=== PATIENT | female | born 1995 | race Caucasian/White ===

== ENCOUNTER 2025-07-09 21:28 | Outpatient (CLI) | payer MEDICAID, SELFPAY ==
[2025-07-09 21:37] VITALS: BMI 35.0
--- OUTSIDE RECORDS SUMMARY | 2025-07-09 21:37 | XMS RPT_ITS | CCD ---
Author Organization [facility] Inform ion [facility] Care Team Providers Care District Sales Coordinator Name Role Phone Rings, Chaz Unavailable Unavailable Rings, Chaz Unavailable Unavailable Yunior Pan Unavailable Unavailable ALESHIA CAMPBELL Admitting Unavailable ALESHIA CAMPBELL Attending Unavailable ALESHIA CAMPBELL Primary Care Unavailable SRI ELISE Consulting Unavailable PROVIDER, UNKNOWN Consulting Unavailable PROVIDER, UNKNOWN Consulting Unavailable PROVIDER, UNKNOWN Consulting Unavailable Unavailable Primary Care Provider UnavailJACLYN Morrow Referring Unavailable JACLYN SCOTT Referring Unavailable JACLYN SCOTT Attending Unavailable HAJACLYN SANTOS Referring Unavailable DIANE SMITH Attending Unavailable HAJACLYN SANTOS Referring Unavailable Allergies Allergy Classification Reported Allergen(s) Allergy Type Date of Onset Reaction(s) Facility (5 sources) Penicillins; Translations: [penicillins] Propensity to adverse reactions to drug (disorder) [address] [facility] Repository (1 source) No Known Allergies; Translations: [No Known Allergies] Propensity to adverse reactions to drug (disorder) [facility] Repository (4 sources) diphenhydrAMINE ; Translations: [DIPHENHYDRAMIN E] Drug Allergy 3 Shortness of Breath [facility] (4 sources) Hydrogen Peroxide; Translations: [HYDROGEN PEROXIDE] Drug Allergy 3 Other: See Comments [facility] Medications Current Medications Medication Drug Class(es) Dates Sig (Normalized) Sig (Original) vit 75/iron/folic/om3 (DAILY ORAL) (3 sources) vit 75/iron/folic/om3 (DAILY ORAL) Take by mouth. Active Problems Problem Classification Problem Date Documented Da te Episodic/Chronic Allergic reactions (5 sources) Allergy to penicillin; Translations: [Allergy status to penicillin] Onset: 05-21-2025 05-21-2025 Episodic Immunizations and screening for infectious disease (2 sources) Patient encounter status; Translations: [Encounter for screening for infections with a predominantly sexual mode of transmission] Onset: 05-21-2025 05-21-2025 Episodic Other circulatory disease (4 sources) H/O: hypertension; Translations: [Personal history of other diseases of the circulatory system] Onset: 05-21-2025 05-21-2025 Episodic Other circulatory disease (1 source) Personal history of other diseases of the circulatory system; Translations: [History of hypertension] Onset: 05-21-2025 Episodic Other complications of (6 sources) High risk ; Translations: [Supervision of high risk , unspecified, second trimester] Onset: 05-21-2025 05-21-2025 Episodic Other complications of (4 sources) Late entry into care; Translations: [Supervision of with insufficient care, unspecified trimester] Onset: 05-21-2025 05-21-2025 Episodic Other complications of (4 sources) Finding of pattern of ; Translations: [Supervision of other high risk pregnancies, unspecified trimester] Onset: 05-21-2025 05-21-2025 Episodic Other complications of (4 sources) History of delivery of macrosomal ; Translations: [Supervision of with other poor reproductive or obstetric history, unspecified trimester] Onset: 05-21-2025 05-21-2025 Episodic Other complications of (1 source) Supervision of high risk , unspecified, second trimester; Translations: [Supervision of high risk in second trimester (HCC)] Onset: 05-21-2025 Episodic Other complications of (1 source) Supervision of with insufficient care, unspecified trimester; Translations: [Late care ([facility])] Onset: 05-21-2025 Episodic Other complications of (1 source) Supervision of other high risk pregnancies, unspecified trimester; Translations: [Short interval between pregnancies affecting , antepartum ([facility])] Onset: 05-21-2025 Episodic Other complications of (1 source) Supervision of with other poor reproductive or obstetric history, unspecified trimester; Translations: [History of macrosomia in in prior , currently ([facility])] Onset: 05-21-2025 Episodic Other gastrointestinal disorders (1 source) Diarrhea, unspecified; Translations: [Diarrhea, unspecified] Onset: 04-22-2020 Episodic Other screening for suspected conditions (not mental disorders or infectious disease) (3 sources) Cancer cervix screening status; Translations: [Encounter for screening for malignant neoplasm of cervix] Onset: 05-21-2025 05-21-2025 Episodic Residual codes; unclassified (1 source) Gestation period, 17 weeks; Translations: [17 weeks gestation of ] 05-21-2025 Episodic Residual codes; unclassified (4 sources) Family history of cleft lip; Translations: [Family history of other congenital malformations, deformations and chromosomal abnormalities] Onset: 05-21-2025 05-21-2025 Episodic Residual codes; unclassified (4 sources) H/O: blood transfusion; Translations: [Personal history of other medical treatment] Onset: 05-21-2025 05-21-2025 Episodic Residual codes; unclassified (1 source) H/O: ; Translations: [Personal history of other complications of , childbirth and the puerperium] 05-21-2025 Episodic Residual codes; unclassified (1 source) 20 weeks gestation of ; Translations: [20 weeks gestation of (HCC)] Onset: 06-11-2025 Episodic Residual codes; unclassified (1 source) History of uterine scar from previous surgery; Translations: [History of section] Onset: 05-21-2025 Episodic Residual codes; unclassified (2 sources) Personal history of other complications of , childbirth and the puerperium; Translations: [History of hypertension] Onset: 05-21-2025 Episodic Residual codes; unclassified (1 source) 17 weeks gestation of ; Translations: [17 weeks gestation of (HCC)] Onset: 05-21-2025 Episodic Residual codes; unclassified (1 source) Family history of other congenital malformations, deformations and chromosomal abnormalities; Translations: [Family history of cleft lip] Onset: 05-21-2025 Episodic Residual codes; unclassified (1 source) Personal history of other medical treatment; Translations: [History of blood transfusion] Onset: 05-21-2025 Episodic Unclassified (3 sources) [facility] Education - COMMON Onset: 05-21-2025 05-21-2025 Unclassified (3 sources) Education - [place] Onset: 05-21-2025 05-21-2025 Results Test Name Value Interpretation Reference Range Cassie Elkins 05-22-2025 CNPN Telephone ([facility]) RACHELIRIS Molina ([id number]) 1995 F Date Time Provider Department 05/22/25 NURSE PST SPECIALIST [facility] During your visit today, we recorded the following information about you: Nathalie Chavez, RN 05/22/2025 8:15 AM Signed 1st risk assessment form submitted 05/22/25 Nathalie Chavez RN Allergies As of Date: 05/22/2025 Noted Allergy Reaction DIPHENHYDRAMINE 08/24/2023 12 - Shortness of Breath HYDROGEN PEROXIDE 08/24/2023 14 - Other: See Comments PENICILLINS 08/24/2023 7 - Swelling Date Reviewed: 05/21/2025 Reviewed by: Jaclyn Scott APRN.GERIATRIC NURSE ASSISTANT - Fully Assessed Reason for Visit: PRAF [4193] Prescriptions as of 05/22/2025 - vit 75/iron/folic/om3 (DAILY ORAL) Take by mouth. Problem List As Of Date 05/22/2025 Noted Resolved Family history of cleft lip [Z82.79] 05/21/2025 Supervision of high risk in second tr*05/21/2025 Late care (HCC) [O09.30] 05/21/2025 History of section [Z98.891] 05/21/2025 Short interval between pregnancies affecting pr*05/21/2025 Penicillin allergy [Z88.0] 05/21/2025 History of macrosomia in infant in prior pregna*05/21/2025 History of blood transfusion [Z92.89] 05/21/2025 History of hypertension [Z86.79, Z87*05/21/2025 Encounter Status:Closed by NATHALIE CHAVEZ on 05/22/[address] [facility] [id number] PLUSon 05-22-2025 Cell-free DNA./Cell-free DNA.total Dosage of chromosome-specific cfDNA (cfDNA) [Molar fraction] 26% Normal [facility] Comment on above: Order Comment: Speci men Type: BLOOD SPECIMEN Ordering Facility: [facility] Address: [address] [place] [address] Performed By: #### M AT21 #### [facility] CLIA [id number] [address] [place] [address] Chr 13+18+21+X+Y aneuploidy Dosage of chromosome-specific cfDNA Ql (cfDNA) Negative Normal [facility] Comment on above: Order Comment: Speci men Type: BLOOD SPECIMEN Ordering Facility: [facility] Address: [address] [place] [address] Performed By: #### M AT21 #### [facility] CLIA [id number] [address] [place] [address] Chr 21 trisomy Dosage of chromosome-specific cfDNA Ql (cfDNA) Negative Normal [facility] Comment on above: Order Comment: Speci men Type: BLOOD SPECIMEN Ordering Facility: [facility] Address: [address] [place] [address] Performed By: #### M AT21 #### [facility] CLIA [id number] [address] [place] [address] Chr X and Y aneuploidy risk Sequencing Ql (cfDNA) [Interp] Not detected Normal [facility] Comment on above: Order Comment: Speci men Type: BLOOD SPECIMEN Ordering Facility: [facility] Address: [address] [place] [address] Result Comment: Not Detected Not Detected Performed By: #### M AT21 #### [facility] CLIA [id number] [address] [place] [address] Citation [place] (Reference lab test) Comment Normal [facility] Comment on above: Order Comment: Speci men Type: BLOOD SPECIMEN Ordering Facility: [facility] Address: [address] [place] [address] Result Comment: 1. P alomaki GE, et al. Stacy Med. 2012;14(3):296-305. 2. [place] ASCENCIO, et al. Prenat Diag. 2013;33(6):591-597. 3. Otf Sanderson, et al. Clin Chem. 2015 Apr;61(4):608-616. 4. Aleyda PALMER, et al. Stacy Med. 2011;13(11):913-920. 5. ACOG/SM[facility] Practice Bulletin No. 226, Jun 2020. Performed By: #### M AT21 #### [facility] CLIA [id number] [address] [place] [address] Gestational age Estimated from conception date Juarez Normal [facility] Comment on above: Order Comment: Laura damon Type: BLOOD SPECIMEN Ordering Facility: [facility] Address: [address] [place] [address] Performed By: #### M AT21 #### [facility] CLIA [id number] [address] [place] [address] GESTATIONALAGE AGE > OR = 9W Yes Normal [facility] Comment on above: Order Comment: Laura damon Type: BLOOD SPECIMEN Ordering Facility: [facility] Address: [address] [place] [address] Performed By: #### M AT21 #### [facility] CLIA [id number] [address] [place] [address] Laboratory comment [place] (Report) Comment Normal [facility] Comment on above: Order Comment: Laura damon Type: BLOOD SPECIMEN Ordering Facility: [facility] Address: [address] [place] [address] Result Comment: The MaterniT(R) 21 PLUS laboratory-developed test (LDT) analyzes circulating cell-free DNA from a maternal blood sample. This test is used for screening purposes and not diagnostic. Clinical correlation is recommended. Validation data on twin pregnancies is limited and the ability of this test to detect aneuploidy in higher multiple gestations has not yet been validated. Performed By: #### M AT21 #### [facility] CLIA [id number] [address] [place] [address] corporate events director name Nom (Provider) Comment Normal [facility] Comment on above: Order Comment: Speclucila damon Type: BLOOD SPECIMEN Ordering Facility: [facility] Address: [address] [place] [id number] Result Comment: This specimen showed an expected representation of chromosome 21, 18 and 13 material. Clinical correlation is suggested. Comment Julian Nichols MD, PhD, Director, [facility] Performed By: #### M AT21 #### [facility] CLIA [id number] [address] [place] [address] LIMITATIONS OF THE TEST Comment Normal [facility] Comment on above: Order Comment: Laura damon Type: BLOOD SPECIMEN Ordering Facility: [facility] Address: [address] [place] [address] Result Comment: Whsagar e the results of these tests are highly reliable, discordant results, including inaccurate sex prediction, may occur due to placental, maternal, or mosaicism or neoplasm; vanishing twin; prior maternal organ transplant; or other causes. These tests are screening tests and not diagnostic; they do not replace the accuracy and precision of diagnosis with CVS or amniocentesis. A patient with a positive test result should be referred for genetic counseling and offered invasive diagnosis for confirmation of test results.[5] The results of this testing, including the benefits and limitations, should be discussed with a qualified healthcare provider. management decisions, including termination of the , should not be based on the results of these tests alone. The healthcare provider is responsible for the use of this information in the management of their patient. Sex chromosomal aneuploidies are not reportable for known multiple gestations. A negative result does not ensure an unaffected nor does it exclude the possibility of other chromosomal abnormalities or defects which are not a part of these tests. An uninformative result may be reported, the causes of which may include, but are not limited to, insufficient sequencing coverage, noise or artifacts in the region, amplification or sequencing bias, or insufficient fraction. These tests are not intended to identify pregnancies at risk for neural tube defects or ventral wall defects. Testing for whole chromosome abnormalities (including sex chromosomes) and for subchromosomal abnormalities could lead to the potential discovery of both and maternal genomic abnormalities that could have major, minor, or no, clinical significance. Evaluating the significance of a positive or a non-reportable result may involve both invasive testing and additional studies on the mother. Such investigations may lead to a diagnosis of maternal chromosomal or subchromosomal abnormalities, which on occasion may be associated with benign or malignant maternal neoplasms. These tests may not accurately identify triploidy, balanced rearrangements, or the precise location of subchromosomal duplications or deletions; these may be detected by diagnosis with CVS or amniocentesis. The ability to report results may be impacted by maternal BMI, maternal weight, maternal systemic lupus erythematosus (SLE) and/or by certain pharmaceutical agents such as low molecular weight heparin (for example: Lovenox(R), Xaparin(R), Clexane(R) and Fragmin(R)). Performed By: #### M AT21 #### [facility] CLIA [id number] [address] [place] [address] Monosomy X risk Dosage of chromosome-specific cfDNA Ql (Plasma cell-free+WBC DNA) [Interp] Not detected Normal [facility] Comment on above: Order Comment: Laura damon Type: BLOOD SPECIMEN Ordering Facility: [facility] Address: [address] [place] [address] Performed By: #### M AT21 #### [facility] CLIA [id number] [address] [place] [address] NEGATIVE PREDICTIVE VALUE Note Normal [facility] Comment on above: Order Comment: Laura damon Type: BLOOD SPECIMEN Ordering Facility: [facility] Address: [address] [place] [address] Result Comment: The Negative Predictive Value (NPV) for trisomy 21, 18, and 13 is greater than 99%. The NPV for SCA and ESS cannot be calculated as SCA and ESS are only reported when an abnormality is detected. Performed By: #### M AT21 #### [facility] CLIA [id number] [address] [place] [address] PERFORMANCE CHARACTERISTICS Note Normal [facility] Comment on above: Order Comment: Laura damon Type: BLOOD SPECIMEN Ordering Facility: [facility] Address: [address] [place] [address] Result Comment: ! Sex ! Accuracy: 99.4% ! ! ! ! Region (associated syndrome) ! Est. Sens# ! Est. Spec ! ! ! ! Trisomy 21 (Down Syndrome) ! 99.1% ! 99.9% ! ! ! ! Trisomy 18 (Cagle Syndrome) ! >99.9% ! 99.6% ! ! ! ! Trisomy 13 ([place] Syndrome) ! 91.7% ! 99.7% ! ! ! ! Sex Chromosome Aneuploidies## ! 96.2% ! 99.7% ! ! ! * As reported in ISCA database nstd37 [https://www.ncbi.nlm.nih.gov/dbvar/studies/nstd37/ ] # Estimated Sensitivity. Sensitivity estimated across the observed size distribution of each syndrome [per ISCA database nstd37] and across the range of fractions observed in routine clinical NIPT. Actual sensitivity can also be influenced by other factors such as the size of the event, total sequence counts, amplification bias, or sequence bias. ## Juarez gestation only. Performed By: #### M AT21 #### [facility] CLIA [id number] [address] [place] [address] POSITIVE PREDICTIVE VALUE N/A Normal [facility] Comment on above: Order Comment: Speci marisol Type: BLOOD SPECIMEN Ordering Facility: [facility] Address: [address] [place] [address] Performed By: #### M AT21 #### [facility] CLIA [id number] [address] [place] [address] Reference Lab Test Method Comment Normal [facility] Comment on above: Order Comment: Laura damon Type: BLOOD SPECIMEN Ordering Facility: [facility] Address: [address] [place] [address] Result Comment: Circ ulating cell-free DNA was purified from the plasma component of maternal blood. The extracted DNA was then converted into a genomic DNA library for aneuploidy analysis of chromosomes 21, 18, and 13 via next generation sequencing.[1] Optional findings based on the test order include sex chromosome aneuploidy (SCA)[2], and enhanced sequencing series (ESS)[3], which will only be reported on as an additional finding when an abnormality is detected. SCA testing includes information on X and Y representation, while ESS testing includes deletions in selected regions (22q, 15q, 11q, 8q, 5p, 4p, 1p) and trisomy of chromosomes 16 and 22. Performed By: #### M AT21 #### [facility] CLIA [id number] [address] [place] [address] Service comment (Unsp spec) [Interp] Comment Normal [facility] Comment on above: Order Comment: Speci men Type: BLOOD SPECIMEN Ordering Facility: [facility] Address: [address] [place], [place] [id number] Result Comment: [employer] is a subsidiary of [employer], using the brand [facility]. This test was developed and its performance characteristics determined by [employer]. It has not been cleared or approved by the Food and Drug Administration. This laboratory is certified under the Clinical Laboratory Improvement Amendments (CLIA) as qualified to perform high complexity clinical laboratory testing and accredited by the [employer] (CAP). If there is future clinical need for adding MaterniT GENOME testing, this specimen will be available until term. [facility] samples will not be retained beyond 60 days. [facility] patients will have to send a new sample for re-sequencing ([facility] Test Code: [id number]). Performed By: #### M AT21 #### [facility] CLIA [id number] [address] [place] [address] Sex Dosage of chromosome-specific cfDNA Nom (cfDNA) Comment Normal [facility] Comment on above: Order Comment: Speci men Type: BLOOD SPECIMEN Ordering Facility: [facility] Address: [address] [place] [address] Result Comment: Cons istent with Male Performed By: #### M AT21 #### [facility] CLIA [id number] [address] [place] [address] Test performance information [place] (Unsp spec) Comment Normal [facility] Comment on above: Order Comment: Speci men Type: BLOOD SPECIMEN Ordering Facility: [facility] Address: [address] [place] [address] Result Comment: The performance characteristics of the MaterniT(R) 21 PLUS laboratory-developed test (LDT) have been determined in a clinical validation study with women at increased risk for chromosomal aneuploidy.[1-4] Performed By: #### M AT21 #### [facility] CLIA [id number] [address] [place] [address] Trisomy 13 risk Dosage of chromosome-specific cfDNA Ql (cfDNA) [Interp] Negative Normal [facility] Comment on above: Order Comment: Speci men Type: BLOOD SPECIMEN Ordering Facility: [facility] Address: [address] [place] [address] Performed By: #### M AT21 #### [facility] CLIA [id number] [address] [place] [address] Trisomy 18 risk Dosage of chromosome-specific cfDNA Ql (Plasma cell-free+WBC DNA) [Interp] Negative Normal [facility] Comment on above: Order Comment: Speci men Type: BLOOD SPECIMEN Ordering Facility: [facility] Address: [address] [place] [address] Performed By: #### M AT21 #### [facility] CLIA [id number] [address] [place] [address] Bacteria Ur Culton Bacteria identified Cx Nom (U) ORGANISM ID: 1 >=100,000 CFU/ml Normal urogenital kyleigh Normal [facility] Comment on above: Performed By: #### T RVAMP, 21715-1 #### [facility] CLIA [id number] [address] [place] [address] [place] C. trachomatis+N. gonorrhoea e DNA [place]+probe Ql (Unsp spec)on 05-21-2025 C. trachomatis rRNA [place]+probe Ql (Unsp spec) Not detected Normal Not detected [facility] Comment on above: Order Comment: Speci men Type: SWAB Ordering Facility: [facility] Address: [address] [place] [address] Performed By: #### T RVAMP, 60847-2 #### [facility] CLIA [id number] [address] [place] [address] [place] N. gonorrhoeae rRNA [place]+probe Ql (Unsp spec) Not detected Normal Not detected [facility] Comment on above: Order Comment: Speci men Type: SWAB Ordering Facility: [facility] Address: [address] [place] [address] Performed By: #### T RVAMP, 28409-7 #### [facility] CLIA [id number] [address] [place] [address] [place] CBC W Auto Differential pane l (Bld)on 05-21-2025 Basophils (Bld) [#/Vol] 10*3/uL Normal <0.[address] [facility] Comment on above: Order Comment: Speci men Type: SWAB Ordering Facility: [facility] Address: [address] [place] [address] Performed By: #### T RVAMP, 64275-5 #### [facility] CLIA [id number] [address] [place] [address] [place] Basophils/100 WBC (Bld) 0.1 % Normal [facility] Comment on above: Order Comment: Speci men Type: SWAB Ordering Facility: [facility] Address: [address] [place] [address] Performed By: #### T RVAMP, 83781-8 #### [facility] CLIA [id number] [address] [place] [address] [place] Differential cell count method Nom (Bld) Auto Normal [facility] Comment on above: Order Comment: Speci men Type: SWAB Ordering Facility: [facility] Address: [address] [place] [address] Performed By: #### T RVAMP, 21857-0 #### [facility] CLIA [id number] [address] [place] [address] [place] Eosinophils (Bld) [#/Vol] 0.04 10*3/uL Normal <0.[address] [facility] Comment on above: Order Comment: Speci men Type: SWAB Ordering Facility: [facility] Address: [address] [place] [address] Performed By: #### T RVAMP, 97880-4 #### [facility] CLIA [id number] [address] [place] [address] [place] Eosinophils/100 WBC (Bld) 0.4 % Normal [facility] [facility] Comment on above: Order Comment: Speci men Type: SWAB Ordering Facility: [facility] Address: [address] [place] [address] Performed By: #### T RVAMP, 53090-4 #### [facility] CLIA [id number] [address] [place] [address] [place] Erythrocyte distribution width (RBC) [Ratio] 13.2 % Normal 11.5-15.[address] [facility] Comment on above: Order Comment: Speci men Type: SWAB Ordering Facility: [facility] Address: [address] [place] [address] Performed By: #### T RVAMP, 11820-0 #### [facility] CLIA [id number] [address] [place] [address] [place] Hematocrit (Bld) [Volume fraction] 33.3 % Low 36.0-46.[address] [facility] Comment on above: Order Comment: Speci men Type: SWAB Ordering Facility: [facility] Address: [address] [place] [address] Performed By: #### T RVAMP, 40169-0 #### [facility] CLIA [id number] [address] [place] [address] [place] Hemoglobin (Bld) [Mass/Vol] 11.4 g/dL Low 11.5-15.[address] [facility] Comment on above: Order Comment: Speci men Type: SWAB Ordering Facility: [facility] Address: [address] [place] [address] Performed By: #### T RVAMP, 52602-2 #### [facility] CLIA [id number] [address] [place] [address] [place] Immature granulocytes (Bld) [#/Vol] 0.05 10*3/uL Normal <0.[address] [facility] Comment on above: Order Comment: Speci men Type: SWAB Ordering Facility: [facility] Address: [address] [place] [address] Performed By: #### T RVAMP, 72866-3 #### [facility] CLIA [id number] [address] [place] [address] [place] Immature granulocytes/100 WBC (Bld) 0.5 % Normal [facility] Comment on above: Order Comment: Speci men Type: SWAB Ordering Facility: [facility] Address: [address] [place] [address] Performed By: #### T RVAMP, 00329-5 #### [facility] CLIA [id number] [address] [place] [address] [place] Lymphocytes (Bld) [#/Vol] 1.80 10*3/uL Normal 1.00-4.[address] [facility] Comment on above: Order Comment: Speci men Type: SWAB Ordering Facility: [facility] Address: [address] [place] [address] Performed By: #### T RVAMP, 88809-7 #### [facility] CLIA [id number] [address] [place] [address] [place] Lymphocytes/100 WBC (Bld) 17.4 % Normal [facility] Comment on above: Order Comment: Speci men Type: SWAB Ordering Facility: [facility] Address: [address] [place] [address] Performed By: #### T RVAMP, 55526-5 #### [facility] CLIA [id number] [address] [place] [address] [place] MCH (RBC) [Entitic mass] 31.1 pg Normal 26.0-34.[address] [facility] Comment on above: Order Comment: Speci men Type: SWAB Ordering Facility: [facility] Address: [address] [place] [address] Performed By: #### T RVAMP, 03951-7 #### [facility] CLIA [id number] [address] [place] [address] [place] MCHC (RBC) [Mass/Vol] 34.2 g/dL Normal 30.5-36.[address] [facility] Comment on above: Order Comment: Speci men Type: SWAB Ordering Facility: [facility] Address: [address] [place] [address] Performed By: #### T RVAMP, 26201-4 #### [facility] CLIA [id number] [address] [place] [address] [place] MCV (RBC) [Entitic vol] 91.0 fL Normal 80.0-100.[address] [facility] Comment on above: Order Comment: Speci men Type: SWAB Ordering Facility: [facility] Address: [address] [place] [address] Performed By: #### T RVAMP, 63492-1 #### [facility] CLIA [id number] [address] [place] [address] [place] Monocytes (Bld) [#/Vol] 0.80 10*3/uL Normal <0.[address] [facility] Comment on above: Order Comment: Speci men Type: SWAB Ordering Facility: [facility] Address: [address] [place] [address] Performed By: #### T RVAMP, 07488-5 #### [facility] CLIA [id number] [address] [place] [address] [place] Monocytes/100 WBC (Bld) 7.7 % Normal [facility] Comment on above: Order Comment: Speci men Type: SWAB Ordering Facility: [facility] Address: [address] [place] [address] Performed By: #### T RVAMP, 39917-4 #### [facility] CLIA [id number] [address] [place] [address] [place] Neutrophils (Bld) [#/Vol] 7.67 10*3/uL High 1.45-7.[address] [facility] Comment on above: Order Comment: Speci men Type: SWAB Ordering Facility: [facility] Address: [address] [place] [address] Performed By: #### T RVAMP, 16472-9 #### [facility] CLIA [id number] [address] [place] [address] [place] Neutrophils/100 WBC (Bld) 73.9 % Normal [facility] Comment on above: Order Comment: Speci men Type: SWAB Ordering Facility: [facility] Address: [address] [place] [address] Performed By: #### T RVAMP, 57847-9 #### [facility] CLIA [id number] [address] [place] [address] [place] Nucleated RBC (Bld) [#/Vol] 10*3/uL Normal <0.[address] [facility] Comment on above: Order Comment: Speci men Type: SWAB Ordering Facility: [facility] Address: [address] [place] [address] Performed By: #### T RVAMP, 90437-3 #### [facility] CLIA [id number] [address] [place] [address] [place] Nucleated RBC/100 WBC (Bld) [Ratio] 0.0 /[address] [facility] Comment on above: Order Comment: Speci men Type: SWAB Ordering Facility: [facility] Address: [address] [place] [address] Performed By: #### T RVAMP, 40085-9 #### [facility] CLIA [id number] [address] [place] [address] [place] Platelet mean volume (Bld) [Entitic vol] 9.4 fL Normal 9.0-12.[address] [facility] Comment on above: Order Comment: Speci men Type: SWAB Ordering Facility: [facility] Address: [address] [place] [address] Performed By: #### T RVAMP, 29650-0 #### [facility] CLIA [id number] [address] [place] [address] [place] Platelets (Bld) [#/Vol] 264 10*3/uL Normal 150-[address] [facility] Comment on above: Order Comment: Speci men Type: SWAB Ordering Facility: [facility] Address: [address] [place] [address] Performed By: #### T RVAMP, 10299-4 #### [facility] CLIA [id number] [address] [place] [address] [place] RBC (Bld) [#/Vol] 3.66 10*6/uL Low 3.90-5.20 [facility] Comment on above: Order Comment: Speci men Type: SWAB Ordering Facility: [facility] Address: [address] [place] [address] Performed By: #### Jing RVAMP, 45927-2 #### [facility] CLIA [id number] [address] [place] [address] [place] WBC (Bld) [#/Vol] 10.37 10*3/uL Normal 3.70-11.00 [facility] Comment on above: Order Comment: Speci men Type: SWAB Ordering Facility: [facility] Address: [address] [place] [address] Performed By: #### T RVAMP, 89065-9 #### [facility] CLIA [id number] [address] [place] [address] [place] CNPLaura 05-21-2025 CNPN Telephone (OBGYWM) IRIS RAMOS ([id number]) 1995 F Date Time Provider Department 05/21/25 JACLYN SCOTT During your visit today, we recorded the following information about you: Christin Diaz 05/21/2025 2:32 PM Signed Patient called to notify Tyler that she changed her mind about theNIPT/aneuploidy screening and would like to proceed. Please notify the patient when the order is available for scheduling. Jaclyn Scott APRN.CNP 05/21/2025 2:58 PM Signed Would recommend she checks with insurance - maximum OOP cost $299 Please also let her know that results will include gender and not to look at MyChart if results are a surprise. Will take 7-10 days after blood draw. Jaclyn Scott APRN.CNP Allergies As of Date: 05/21/2025 Noted Allergy Reaction DIPHENHYDRAMINE 08/24/2023 12 - Shortness of Breath HYDROGEN PEROXIDE 08/24/2023 14 - Other: See Comments PENICILLINS 08/24/2023 7 - Swelling Date Reviewed: 05/21/2025 Reviewed by: Jaclyn Scott APRN.CNP - Fully Assessed Reason for Visit: Orders [681] Cmt: NIPT/aneuploidy screening Primary Visit Diagnosis:Supervision of high risk in second trimester (HCC) [O09.92] Order(s):ILSQQLFB05 PLUS [SQMAT21] Order #: [id number] FUTURE Prescriptions as of 05/21/2025 - vit 75/iron/folic/om3 (DAILY ORAL) Take by mouth. Problem List As Of Date 05/21/2025 Noted Resolved Family history of cleft lip [Z82.79] 05/21/2025 Supervision of high risk in second tr*05/21/2025 Late care (HCC) [O09.30] 05/21/2025 History of section [Z98.891] 05/21/2025 Short interval between pregnancies affecting pr*05/21/2025 Penicillin allergy [Z88.0] 05/21/2025 History of macrosomia in infant in prior pregna*05/21/2025 History of blood transfusion [Z92.89] 05/21/2025 History of hypertension [Z86.79, Z87*05/21/2025 Encounter Status:Closed by ADAL OLIVARES on 05/21/[address] [facility] metabolic 2000 panelOrdered By: Chelle Ramirez on 05-21-2025 Albumin [Mass/Vol] 4.0 g/dL 3.9 - 4.9 g/dL Cl [facility] ALP [Catalytic activity/Vol] 82 U/L 34 - 123 U/L [facility] ALT [Catalytic activity/Vol] 6 U/L Low 7 - 38 U/L [facility] Anion gap [Moles/Vol] 10 mmol/L 8 - 15 mmol/L [facility] AST [Catalytic activity/Vol] 11 U/L Low 13 - 35 U/L [facility] Bilirubin [Mass/Vol] mg/dL Low 0.2 - 1.3 mg/dL [facility] Calcium [Mass/Vol] 10.0 mg/dL 8.5 - 10.2 mg/dL [facility] Chloride [Moles/Vol] 104 mmol/L 98 - 107 mmol/L [facility] CO2 [Moles/Vol] 21 mmol/L Low 22 - 30 mmol/L [facility] Creatinine [Mass/Vol] 0.51 mg/dL Low 0.58 - 0.96 mg/dL [facility] GFR/1.73 sq M.predicted among non-blacks MDRD (S/P/Bld) [Vol rate/Area] 131 mL/min/{1.73_m2} - PINF [facility] Comment on above: Estimated Glomerular Filtration Rate (eGFR) is calculated using the 2020 CKD-EPI creatinine equation. This equation utilizes serum creatinine, sex, and age as parameters. The creatinine assay has traceable calibration to isotope dilution-mass spectrometry. Refer to KDIGO guidelines for clinical interpretation. In patients with unstable renal function, e.g. those with acute kidney injury, the eGFR may not accurately reflect actual GFR. Glucose [Mass/Vol] 93 mg/dL 74 - 99 mg/dL [facility] Comment on above: The [place] Diab[employer] s Association (ADA) provides guidance for cutoff values for fasting glucose and random glucose. The ADA defines fasting as no caloric intake for at least 8 hours. Fasting plasma glucose results between 100 to 125 mg/dL indicate increased risk for diabetes (prediabetes). Fasting plasma glucose results greater than or equal to 126 mg/dL meet the criteria for diagnosis of diabetes. In the absence of unequivocal hyperglycemia, results should be confirmed by repeat testing. In a patient with classic symptoms of hyperglycemia or hyperglycemic crisis, random plasma glucose results greater than or equal to 200 mg/dL meet the criteria for diagnosis of diabetes. Reference: Standards of Medical Care in Diabetes 2016, [place] [employer] Association. Diabetes Care. 2016.39(Suppl 1). Interpretation and review of laboratory results Abnormal [facility] Potassium [Moles/Vol] 4.1 mmol/L 3.7 - 5.1 mmol/L [facility] Protein [Mass/Vol] 6.8 g/dL 6.3 - 8.0 g/dL [facility] Sodium [Moles/Vol] 135 mmol/L Low 136 - 144 mmol/L [facility] Urea nitrogen [Mass/Vol] 7 mg/dL 7 - 21 mg/dL [facility] Comprehensive metabolic 2000 panelon 05-21-2025 Albumin [Mass/Vol] 4.0 g/dL Normal 3.9-4.9 [facility] Comment on above: Order Comment: Laura damon Type: BLOOD SPECIMEN Ordering Facility: [facility] Address: [address] [place] [address] Performed By: #### 2 4323-8 #### [facility] CLIA [id number] [address] [place] [address] [place] ALP [Catalytic activity/Vol] 82 U/L Normal 34-[address] [facility] Comment on above: Order Comment: Laura damon Type: BLOOD SPECIMEN Ordering Facility: [facility] Address: [address] [place] [address] Performed By: #### 2 4323-8 #### [facility] CLIA [id number] [address] [place] [address] [place] ALT [Catalytic activity/Vol] 6 U/L Low 7-[address] [facility] Comment on above: Order Comment: Laura damon Type: BLOOD SPECIMEN Ordering Facility: [facility] Address: [address] [place] [address] Performed By: #### 2 4323-8 #### [facility] CLIA [id number] [address] [place] [address] [place] Anion gap [Moles/Vol] 10 mmol/L Normal 8-[address] [facility] Comment on above: Order Comment: Speci men Type: BLOOD SPECIMEN Ordering Facility: [facility] Address: [address] [place] [address] Performed By: #### 2 4323-8 #### [facility] CLIA [id number] [address] [place] [address] [place] AST [Catalytic activity/Vol] 11 U/L Low 13-[address] [facility] Comment on above: Order Comment: Speci men Type: BLOOD SPECIMEN Ordering Facility: [facility] Address: [address] [place] [address] Performed By: #### 2 4323-8 #### [facility] CLIA [id number] [address] [place] [address] [place] Bilirubin [Mass/Vol] mg/dL Low 0.2-1.3 [facility] Comment on above: Order Comment: Speci men Type: BLOOD SPECIMEN Ordering Facility: [facility] Address: [address] [place] [address] Performed By: #### 2 4323-8 #### [facility] CLIA [id number] [address] [place] [address] [place] Calcium [Mass/Vol] 10.0 mg/dL Normal 8.5-10.2 [facility] Comment on above: Order Comment: Speci men Type: BLOOD SPECIMEN Ordering Facility: [facility] Address: [address] [place] [address] Performed By: #### 2 4323-8 #### [facility] CLIA [id number] [address] [place] [address] [place] Chloride [Moles/Vol] 104 mmol/L Normal 98-107 [facility] Comment on above: Order Comment: Speci men Type: BLOOD SPECIMEN Ordering Facility: [facility] Address: [address] [place], [place] [id number] Performed By: #### 2 4323-8 #### [facility] CLIA [id number] [address] [place] [address] [place] CO2 [Moles/Vol] 21 mmol/L Low 22-[address] [facility] Comment on above: Order Comment: Speci men Type: BLOOD SPECIMEN Ordering Facility: [facility] Address: [address] [place] [address] Performed By: #### 2 4323-8 #### [facility] CLIA [id number] [address] [place] [address] [place] Creatinine [Mass/Vol] 0.51 mg/dL Low 0.58-0.[address] [facility] Comment on above: Order Comment: Speci men Type: BLOOD SPECIMEN Ordering Facility: [facility] Address: [address] [place] [address] Performed By: #### 2 4323-8 #### [id number] [address] [place] [address] [place] eGFRcr SerPlBld CKD-EPI 2020 131 mL/min/1.73m??? Normal >=[address] [facility] Comment on above: Order Comment: Speci men Type: BLOOD SPECIMEN Ordering Facility: [facility] Address: [address] [place] [address] Result Comment: Brie mated Glomerular Filtration Rate (eGFR) is calculated using the 2020 CKD-EPI creatinine equation. This equation utilizes serum creatinine, sex, and age as parameters. The creatinine assay has traceable calibration to isotope dilution-mass spectrometry. Refer to KDIGO guidelines for clinical interpretation. In patients with unstable renal function, e.g. those with acute kidney injury, the eGFR may not accurately reflect actual GFR. Performed By: #### 2 4323-8 #### [facility] CLIA [id number] [address] [place], [place] [id number] [place] Glucose [Mass/Vol] 93 mg/dL Normal 74-99 [facility] Comment on above: Order Comment: Laura damon Type: BLOOD SPECIMEN Ordering Facility: [facility] Address: [address] [place] [address] Result Comment: The [place] Diabetes Association (ADA) provides guidance for cutoff values for fasting glucose and random glucose. The ADA defines fasting as no caloric intake for at least 8 hours. Fasting plasma glucose results between 100 to 125 mg/dL indicate increased risk for diabetes (prediabetes). Fasting plasma glucose results greater than or equal to 126 mg/dL meet the criteria for diagnosis of diabetes. In the absence of unequivocal hyperglycemia, results should be confirmed by repeat testing. In a patient with classic symptoms of hyperglycemia or hyperglycemic crisis, random plasma glucose results greater than or equal to 200 mg/dL meet the criteria for diagnosis of diabetes. Reference: Standards of Medical Care in Diabetes 2016, [place] Diabetes [employer]. Diabetes Care. 2016.39(Suppl 1). Performed By: #### 2 4323-8 #### [facility] CLIA [id number] [address] [place] [address] [place] Potassium [Moles/Vol] 4.1 mmol/L Normal 3.7-5.[address] [facility] Comment on above: Order Comment: Laura damon Type: BLOOD SPECIMEN Ordering Facility: [facility] Address: [address] [place] [address] Performed By: #### 2 4323-8 #### [facility] CLIA [id number] [address] [place] [address] [place] Protein [Mass/Vol] 6.8 g/dL Normal 6.3-8.0 [facility] Comment on above: Order Comment: Laura damon Type: BLOOD SPECIMEN Ordering Facility: [facility] Address: [address] [place], [place] [address] Performed By: #### 2 4323-8 #### [facility] CLIA [id number] [address] [place] [address] [place] Sodium [Moles/Vol] 135 mmol/L Low 136-144 [facility] Comment on above: Order Comment: Speci men Type: BLOOD SPECIMEN Ordering Facility: [facility] Address: [address] [place] [address] Performed By: #### 2 4323-8 #### [facility] CLIA [id number] [address] [place] [address] [place] Urea nitrogen [Mass/Vol] 7 mg/dL Normal 7-[address] [facility] Comment on above: Order Comment: Speci men Type: BLOOD SPECIMEN Ordering Facility: [facility] Address: [address] [place] [address] Performed By: #### 2 4323-8 #### [facility] CLIA [id number] [address] [place] [address] [place] HBV surface Ag Ser Qlon 09- HBV surface Ag Ql (S) Negative Normal Negative [facility] Comment on above: Order Comment: Speci men Type: SWAB Ordering Facility: [facility] Address: [address] [place] [address] Performed By: #### T RVAMP, 78481-6 #### [facility] CLIA [id number] [address] [place] [address] [place] HCV Ab Ser Qlon 05-21-2025 HCV Ab Ql (S) Negative Normal Negative [facility] Comment on above: Order Comment: Speci men Type: BLOOD SPECIMEN Ordering Facility: [facility] Address: [address] [place] [address] Result Comment: The result suggests no evidence of infection with Hepatitis C virus. Should recent infection be suspected, repeat testing may be considered 4-6 weeks after this draw. Performed By: #### 1 6128-1 #### [facility] CLIA [id number] [address] [place] [address] [place] HIV 1+2 Ab IA Qlon HIV 1 and 2 Ab IA.rapid Nom (S/P/Bld) Normal [facility] Comment on above: Order Comment: Speci men Type: SWAB Ordering Facility: [facility] Address: [address] [place] [address] Result Comment: Test not indicated. Performed By: #### T RVAMP, 34850-7 #### [facility] CLIA [id number] [address] [place] [address] [place] [facility] [place] HIV 1+2 Ab+HIV1 p24 Ag IA Ql Non-Reactive Normal Nonreactive [facility] Comment on above: Order Comment: Speci men Type: SWAB Ordering Facility: [facility] Address: [address] [place] [address] Performed By: #### T RVAMP, 10886-0 #### [facility] CLIA [id number] [address] [place] [address] [place] [facility] HIV immunoassay testing algorithm interpretation (S/P/Bld) [Interp] Normal [facility] Comment on above: Order Comment: Speci men Type: SWAB Ordering Facility: [facility] Address: [address] [place] [address] Result Comment: No e vidence of HIV-1 or HIV-2 infection. Should recent infection be suspected, repeat testing may be considered 2-3 weeks after this draw. [place] Rev. Code 3701.243(E): This information has been disclosed to you from confidential records protected from disclosure by state law. You shall make no further disclosure of this information without the specific, written, and informed release of the individual to whom it pertains or as otherwise permitted by state law. A general authorization for the release of medical or other information is not sufficient for the purpose of the release of HIV test results or diagnoses. Performed By: #### T RVAMP, 05228-5 #### [facility] CLIA [id number] [address] [place] [address] [place] HbA1c (Bld)on 05-21-2025 Average glucose Estimated from glycated hemoglobin (Bld) [Mass/Vol] 111 mg/dL Normal [facility] Comment on above: Order Comment: Speci men Type: BLOOD SPECIMEN Ordering Facility: [facility] Address: [address] [place] [address] Result Comment: eAG: (Estimated average glucose) is a calculated value from HgbA1c and is liability claims representative of the average blood glucose level in the last 2-3 month period. Performed By: #### 5 5454-3 #### [facility] CLIA [id number] [address] [place] [address] [place] HbA1c (Bld) [Mass fraction] 5.5 % Normal 4.3-5.[address] [facility] Comment on above: Order Comment: Speci men Type: BLOOD SPECIMEN Ordering Facility: [facility] Address: [address] [place] [address] Result Comment: [place] Diabetes Association guidelines indicate that patients with HgbA1c in the range 5.7-6.4% are at increased risk for development of diabetes, and intervention by lifestyle modification may be beneficial. HgbA1c greater or equal to 6.5% is considered diagnostic of diabetes. Performed By: #### 5 [id number] #### [facility] CLIA [id number] [address] [place] [address] [place] PAP TESTon 05-21-[address] [facility] Comment on above: Order Comment: Speci men Type: FLUID SPECIMEN Ordering Facility: [facility] Address: [address] [place] [address] Result Comment: Sati sfactory for interpretation. Transformation zone present Performed By: #### L [id number] #### [facility] CLIA [id number] [facility] [address], [address] [place] [address] [place] [facility] CLIA [id number] [address] [place] [address] [place] CASE REPORT Normal [facility] Comment on above: Order Comment: Speci men Type: FLUID SPECIMEN Ordering Facility: [facility] Address: [address] [place] [address] Result Comment: Gyne cologic Cytology Report Case: [id number] Authorizing Provider: Jaclyn Scott APRN.GERIATRIC NURSE ASSISTANT Collected: 05/21/2025 09:52 AM Ordering Location: OB/Gynecology Received: 05/21/2025 11:39 AM First Screen: Marla Abbasi [place], [place], ASCP Specimen: Pap Test, ThinPrep, Cervix Performed By: #### L [id number] #### [facility] CLIA [id number] [address] [place] [address] [address] [place] [address] [place] [facility] CLIA [id number] [address] [place] [address] [place] CLINICAL HISTORY, CYTOLOGY, SPECIAL EDUCATION SECRETARY (Indicate Weeks) Normal [facility] Comment on above: Order Comment: Speci men Type: FLUID SPECIMEN Ordering Facility: [facility] Address: [address] [place] [address] Result Comment: 17 Performed By: #### L [id number] #### [facility] CLIA [id number] [address] [place] [address], [address] [place] [address] [place] [facility] CLIA [id number] [address] [place] [address] [place] FINAL PERFORMING LAB Normal [facility] Comment on above: Order Comment: Speci men Type: FLUID SPECIMEN Ordering Facility: [facility] Address: [address] [place] [address] Result Comment: Tech nical component, business machine operator screening performed at: [facility], [address] [place] [address], [facility] 3, 4th Floor, [place] [address] CLIA: [id number] Diagnostic interpretation performed at: [facility], [address] [place] [address], [facility] 3, 4th Floor, [place] [address] CLIA# [id number] Expeller Worker: Yunior Dean MD Performed By: #### L [id number] #### [facility] CLIA [id number] [address] [place] [address] 3, [address] [place] [address] [place] [facility] CLIA [id number] [address] [place] [address] [place] [address] [place] INTERPRETATION, CYTOLOGY, SPECIAL EDUCATION SECRETARY Normal [facility] Comment on above: Order Comment: Speci men Type: FLUID SPECIMEN Ordering Facility: [facility] Address: [address] [place] [address] Result Comment: Nega tive for intraepithelial lesion or malignancy. at 1001 EDT Performed By: #### L [id number] #### [facility] CLIA [id number] [address] [place] [address] 3, [address] [place], [place] [id number] [place] [facility] CLIA [id number] [address] [place], [place] [id number] [place] LMP 01/22/[address] [facility] Comment on above: Order Comment: Speci men Type: FLUID SPECIMEN Ordering Facility: [facility] Address: [address] [place] [address] Performed By: #### L [id number] #### [facility] CLIA [id number] [address] [place] [address], [address] [place], [place] [id number] [place] [facility] CLIA [id number] [address] [place] [address] [place] PAP DISCLAIMER COMMENT The Pap Smear is a screening test for cervical cancer. False negative results occur with all screening tests, emphasizing the need for rescreening at recommended intervals, and clinical correlation. Normal [facility] Comment on above: Order Comment: Speci men Type: FLUID SPECIMEN Ordering Facility: [facility] Address: [address] [place] [address] Performed By: #### L [id number] #### [facility] CLIA [id number] [address] [place] [address] 3, [address] [place], [place] [id number] [place] [facility] CLIA [id number] [address] [place] [address], [place] [address] [place] PAP SURVEYOR COMMENT This specimen has been analyzed by the FDA-approved K[employer] System, which uses digital imaging and an enhanced artificial intelligence image analysis algorithm to identify martinez of interest on the microscopic slide, to assist the ground crew lines person and pathologist in evaluating cells on ThinPrep Pap tests. Following analysis, martinez of interest on the microscopic slide selected by the algorithm are reviewed by a ground crew lines person. If a sample requires hierarchical review, the pathologist will review the same martinez of interest selected by the algorithm prior to final interpretation. Normal [facility] Comment on above: Order Comment: Speci marisol Type: FLUID SPECIMEN Ordering Facility: [facility] Address: [address] [place] [address] Performed By: #### L [id number] #### [facility] CLIA [id number] [address] [place] [address] 3, [address] [place] [address] [place] [facility] CLIA [id number] [address] [place] [address] [place] RUBELLA IGG ANTIBODYon 05-21 RUBELLA IGG AB, QUAL Positive Normal Positive [facility] Comment on above: Order Comment: Laura damon Type: SWAB Ordering Facility: [facility] Address: [address] [place] [address] Result Comment: The result suggests recent or past exposure to Rubella virus or history of Rubella vaccination. Positive result may also be seen due to presence of passively-transferred antibodies. Please correlate with patient's history. Performed By: #### T RVAMP, 63051-0 #### [facility] CLIA [id number] [address] [place] [address] [place] Reagin and Treponema pallidu m IgG and IgM [Interp]on 05-21-2025 T. pallidum IgG+IgM IA Ql (S) Non-Reactive Normal Nonreactive [facility] Comment on above: Order Comment: Laura damon Type: SWAB Ordering Facility: [facility] Address: [address] [place] [address] Performed By: #### T RVAMP, 61799-5 #### [facility] CLIA [id number] [address] [id number] [address] [place] Reagin+T pallidum IgG+IgM Se rPl-Impon 05-21-2025 Reagin and Treponema pallidum IgG and IgM [Interp] Cannot exclude recent Treponemal infection if specimen collected within 7-10 days after appearance of suspect lesions or 2-3 weeks after an exposure. Clinical correlation is required. Normal [facility] Comment on above: Order Comment: Speci men Type: SWAB Ordering Facility: [facility] Address: [address] [place] [address] Performed By: #### T RVAMP, [id number] #### [facility] CLIA [id number] [address] [place] [address] [place] TRICHOMONAS VAGINALIS NAATon 05-21-2025 T. vaginalis DNA [place]+probe Ql (Unsp spec) Not detected Normal Not detected [facility] Comment on above: Order Comment: Speci men Type: SWAB Ordering Facility: [facility] Address: [address] [place] [address] Performed By: #### T RVAMP, 62886-7 #### [facility] CLIA [id number] [address] [place] [address] [place] TSH SerPl-aCncon 05-21-2025 TSH Qn 1.310 m[IU]/L Normal 0.270-4.[address] [facility] Comment on above: Order Comment: Speci men Type: BLOOD SPECIMEN Ordering Facility: [facility] Address: [address] [place] [address] Result Comment: If t he patient is , TSH reference range varies by gestational period: First Trimester (weeks 9-12): 0.180-2.990 mIU/L Second Trimester: 0.110-3.980 mIU/L Third Trimester: 0.480-4.710 mIU/L Jesus Strickland et al. A Practical Approach for the Verifications and Determination of Site- and Trimester-Specific Reference Intervals for Thyroid Function tests in . Thyroid, 2019:29:3:412-420. Chaparro Burnham, et al. 2017 Guidelines of the [place] Thyroid Association for the Diagnosis and Management of Thyroid Disease during and the . Thyroid, 2017:27:3:315-389. Performed By: #### 3 016-3 #### [facility] CLIA [id number] [address] [place] [address] [place] [facility] [place] TYPE + SCREEN PRENATALon ABO group Nom (Bld) O [facility] Blood group antibody screen Ql Negative [facility] Rh Nom (Bld) Positive [facility] Type and Screen Expiration 05/24/2025 23:59 [facility] ABO O Normal [facility] Comment on above: Order Comment: Speci men Type: BLOOD SPECIMEN Ordering Facility: [facility] Address: [address] [place] [address] Performed By: #### T SPN #### [facility] CLIA [id number] [address] [place] [address] [place] Rh Nom (Bld) Positive Normal [facility] Comment on above: Order Comment: Speci men Type: BLOOD SPECIMEN Ordering Facility: [facility] Address: [address] [place] [address] Performed By: #### T SPN #### [facility] CLIA [id number] [address] [place] [address] TYPE AND SCREEN EXPIRATION 05/24/2025 23:[address] [facility] Comment on above: Order Comment: Speci men Type: BLOOD SPECIMEN Ordering Facility: [facility] Address: [address] [place] [address] Performed By: #### T SPN #### [facility] CLIA [id number] [address] [place] [address] OF [place] CNPLaura 05-14-2025 CNPN Telephone (OBGYWM) RAMOSIRIS MEJÍA Molina ([id number]) 1995 F Date Time Provider Department 05/14/25 VIVIAN DOE During your visit today, we recorded the following information about you: Andrae De La Fuente LPN 05/14/2025 11:49 AM Signed Phone call placed brief message to complete new Ob intake questions. Andrae De La Fuente LPN Allergies As of Date: 05/14/2025 (Not on File) Date Reviewed: Never Reviewed Problem List As Of Date: 05/14/2025 (None) Encounter Status:Closed by ANDRAE DE LA FUENTE on 05/14/[address] [facility] Vital Signs Date Time Vital Sign Value Performing Clinician Juanjosei dmitri 05-21-2025 09:28-0400 Body height 162.6 cm Jaclyn Scott APRN.CNP Work Phone: [facility] 05-21-2025 09:28-0400 Body mass index (BMI) [Ratio] 25.92 kg/m2 Jaclyn Scott APRN.CNP Work Phone: [facility] 05-21-2025 09:28-0400 Body weight 68.49 kg Jaclyn Scott APRN.CNP Work Phone: [facility] 05-21-2025 09:28-0400 Diastolic blood pressure 60 mm[Hg] Jaclyn Scott APRN.GERIATRIC NURSE ASSISTANT Work Phone: [facility] 05-21-2025 09:28-0400 Systolic blood pressure 112 mm[Hg] Jaclyn Scott APRN.GERIATRIC NURSE ASSISTANT Work Phone: [facility] Encounters Encounter Date Encounter Type Care Provider Facility Start: 06-11-2025 End: 06-11-2025 ambulatory [facility] Facility:[facility] Start: 05-22-2025 End: 05-22-2025 Telephone encounter Nurse Filer And Sander Veronica [place] Work Phone: Obstetrics/Gynecolog y Comment on above: [facility]AF Start: 05-22-2025 End: 05-22-2025 ambulatory JACLYN SCOTT Facility:[facility] Start: 05-21-2025 End: 05-21-2025 Telephone encounter Jaclyn Scott APRN.CNP Work Phone: OB/Gynecology Comment on above: Orders (NIPT/aneuplo idy screening) Start: 05-21-2025 End: 05-21-2025 ambulatory JACLYN SCOTT Facility:[facility] Start: 05-21-2025 End: 05-21-2025 Patient encounter procedure Jaclyn Scott APRN.GERIATRIC NURSE ASSISTANT Work Phone: OB/Gynecology Comment on above: Supervision of high risk in second trimester (HCC) (Primary Dx); 17 weeks gestation of (HCC); History of section; Screen for STD (sexually transmitted disease); Screening for cervical cancer; Family history of cleft lip; Late care (HCC); Short interval between pregnancies affecting , antepartum (HCC); Penicillin allergy; History of macrosomia in in prior , currently (HCC); History of blood transfusion; History of hypertension; History of polyhydramnios Start: 05-14-2025 End: 05-14-2025 Telephone encounter Vivian Doe APRN.GERIATRIC NURSE ASSISTANT Work Phone: OB/Gynecology Start: 04-22-2020 Patient encounter procedure [facility] Start: 11-20-2019 Patient encounter procedure Facility:[facility] Start: 01-24-2017 End: 01-24-2017 Emergency department patient visit Chaz Brody Facility:[facility] Procedures Date Procedure Procedure Detail Performing Clinician Start: 05-21-2025 H/O: section History of section Jaclyn Scott APRN.GERIATRIC NURSE ASSISTANT Work Phone: Start: 05-21-2025 Antibody screen JACLYNNANCI MAGANA Comment on above: Order Comment: Speci men Type: BLOOD SPECIMEN Ordering Facility: [facility] Address: [address] [place] [address] Performed By: #### T SPN #### [facility] CLIA [id number] [address] [place] [address] OF [place] Plan of Treatment Date Care Activity Detail Author Start: 02-02-2034 Urine microalbumin profile DTaP,Tdap,Td Vaccine (7 - Td or Tdap) [facility] Start: 09-03-2025 RSV Vaccine (1 - Ris k 1-dose series) RSV Vaccine (1 - Risk 1-dose series) [facility] Start: 06-24-2025 End: 06-24-2025 Patient encounter procedure 06/24/2025 1:10 PM EDT Routine Office Visit OB/Gynecology [address] [place] [address] Edwige Hernandez MD [address] [place] [address] 1st OB - LMP 01/22/25 OB/Gynecology Comment on above: 1st OB - LMP 01/22/25 Start: 06-11-2025 End: 06-11-2025 Patient encounter procedure 06/11/2025 9:45 AM EDT Routine Office Visit OB/Gynecology [address] [place] [address] Diane Smith APRN.CNM [address] [place] [address] Anatomy/OB OB/Gynecology Comment on above: Anatomy/OB Start: 06-11-2025 End: 06-11-2025 Patient encounter procedure 06/11/2025 8:30 AM EDT Routine Office Visit [facility] [address] [place] [address] Anatomy [facility] Comment on above: Anatomy Start: 05-27-2025 End: 05-27-2025 Patient encounter procedure 05/27/2025 8:15 AM EDT Initial Office Visit OB/Gynecology [address] [place] [address] Vivian Doe APRN.GERIATRIC NURSE ASSISTANT [address] [place] [address] 1st OB - LMP 01/22/25 OB/Gynecology Comment on above: 1st OB - LMP 01/22/25 Start: 05-21-2025 End: 08-20-2025 ANEMIA REFLEX PANEL [facility] Work Phone: Comment on above: Expected: 05/21/2025 , Expires: 08/20/2025 Start: 05-21-2025 End: 08-20-2025 Chromosome 21 trisomy [Presence] in Blood or Tissue by [employer] [id number] PLUS Lab Routine Supervision of high risk in second trimester (HCC) Expected: 05/21/2025, Expires: 08/20/2025 [facility] Work Phone: Comment on above: Expected: 05/21/2025 , Expires: 08/20/2025 Start: 05-21-2025 End: 08-20-2025 Hemoglobin A1c in Blood [facility] Comment on above: Expected: 05/21/2025 , Expires: 08/20/2025 Start: 05-21-2025 End: 08-20-2025 Hepatitis B virus surface Ag [Presence] in Serum [facility] Comment on above: Expected: 05/21/2025 , Expires: 08/20/2025 Start: 05-21-2025 End: 08-20-2025 Hepatitis C virus Ab [Presence] in Serum [facility] Comment on above: Expected: 05/21/2025 , Expires: 08/20/2025 Start: 05-21-2025 End: 08-20-2025 HIV 1+2 Ab [Presence] in Serum or Plasma by Immunoassay [facility] Comment on above: Expected: 05/21/2025 , Expires: 08/20/2025 Start: 05-21-2025 End: 08-20-2025 MYRIAD FORESIGHT CARRIER SCREEN [facility] Comment on above: Expected: 05/21/2025 , Expires: 08/20/2025 Start: 05-21-2025 End: 05-21-2026 OBSTETRIC ULTRASOUND WHI OBSTETRIC ULTRASOUND WHI Anc Imaging Routine Supervision of high risk in second trimester (HCC) Expected: 05/21/2025, Expires: 05/21/2026 [facility] Comment on above: Expected: 05/21/2025 , Expires: 05/21/2026 Start: 05-21-2025 End: 08-20-2025 RUBELLA IGG ANTIBODY [facility] Comment on above: Expected: 05/21/2025 , Expires: 08/20/2025 Start: 05-21-2025 End: 08-20-2025 SYPHILIS TREPONEMAL W/REFLEX [facility] Comment on above: Expected: 05/21/2025 , Expires: 08/20/2025 Start: 05-21-2025 End: 08-20-2025 Thyrotropin [Units/volume] in Serum or Plasma [facility] Comment on above: Expected: 05/21/2025 , Expires: 08/20/2025 Start: 05-19-2025 Influenza vaccination Influenza Vacc ine (#1) [facility] Start: 2023 HPV Vaccine (1 - 3-d ose SCDM series) HPV Vaccine (1 - 3-dose SCDM series) [facility] Start: 2017 Screening for malign ant neoplasm of cervix Cervical Cancer Screening [facility] Start: 2015 Hepatitis B Vaccine (1 of 3 - 19+ 3-dose series) Hepatitis B Vaccine (1 of 3 - 19+ 3-dose series) [facility] Start: 2015 Urine microalbumin profile DTaP,Tdap,Td Vaccine (1 - Tdap) [facility] Start: 2014 Anxiety Screening Anxiety Screening [facility] Start: 2014 Depression Screening Depression Scre ening [facility] Start: 2014 Hepatitis C screening Hepatitis C Sc reening [facility] Start: 2014 HIV screening HIV Screening [facility] Bacteria identified in Urine by Culture BACTERIAL CULTURE, URINE Microbiology Routine Supervision of high risk in second trimester (HCC) 05/21/2025 9:52 AM EDT [facility] Chlamydia trachomatis+Neisseria gonorrhoeae DNA [Presence] in Unspecified specimen by [place] with probe detection GONORRHEA/CHLAMYDIA NAAT Lab Routine Supervision of high risk in second trimester ([facility]) Screen for STD (sexually transmitted disease) 05/21/2025 9:52 AM EDT [facility] PAP TEST PAP TEST Lab Nichole eng Supervision of high risk in second trimester ([facility]) Screening for cervical cancer 05/21/2025 9:52 AM EDT [facility] TRICHOMONAS VAGINALI S NAAT TRICHOMONAS VAGINALIS NAAT Lab Routine Supervision of high risk in second trimester (HCC) Screen for STD (sexually transmitted disease) 05/21/2025 9:52 AM EDT [facility] Immunizations Immunization Date Immunization Notes Care Provider Lissa coltonginette 08-24-2013 influenza virus vacc ine, unspecified formulation Jaclyn Scott STEVEN.GERIATRIC NURSE ASSISTANT Work Phone: [facility] Payers Date Payer Category Payer Medicaid [id number] 2025 Medicaid [id number] 2017 Unknown 1995 Unknown [id number] Private Health Insurance [id number] Social History Date Type Detail [facility] consumption unknown [facility] Start: 1995 Sex assigned at Not on file [facility] Start: 05-06-2025 Sex Female [facility] Start: 05-21-2025 Gender identity Not on file [facility] Start: 05-21-2025 Tobacco smoking stat [facility] Never smoked tobacco [facility] Start: 05-21-2025 Tobacco use and exposure Smokeless t obacco non-user [facility] Start: 05-21-2025 Alcoholic beverage intake Ex-drinker (finding) [facility] Start: 05-21-2025 History of Social function [facility] Start: 02-05-2025 [facility] Goals Date Patient Goal Desired Activity /State Personal health goal Clinical Notes 05-14-2025 to 05-22-2025 Telephone Encounter - Nathalie Chavez RN - 05/22/2025 8:08 AM EDTTelephone Encounter - Nathalie Chavez RN - 05/22/2025 8:08 AM EDTTelephone Encounter - Christin Diaz - 05/21/2025 2:30 PM EDT Note Date & Type Note Facility 05-22-2025 Telephone encount er Note 1st risk assessment form submitted 05/22/25 Nathalie Chavez RN [facility] 05-22-2025 Miscellaneous Notes Formattin g of this note might be different from the original. 1st risk assessment form submitted 05/22/25 Nathalie Chavez RN documented in this encounter [facility] 05-21-2025 Telephone encount er Note Would recommend she checks with insurance - maximum OOP cost $299 Please also let her know that results will include gender and not to look at MyChart if results are a surprise. Will take 7-10 days after blood draw. Jaclyn Scott APRN.CNP [facility] 05-21-2025 Miscellaneous Notes Formattin g of this note might be different from the original. Would recommend she checks with insurance - maximum OOP cost $299 Please also let her know that results will include gender and not to look at MyChart if results are a surprise. Will take 7-10 days after blood draw. Jaclyn Scott APRN.CNP Patient called to notify Tyler that she changed her mind about theNIPT/aneuploidy screening and would like to proceed. Please notify the patient when the order is available for scheduling. documented in this encounter [facility] 05-21-2025 Telephone encount er Note Patient called to notify Tyler that she changed her mind about theNIPT/aneuploidy screening and would like to proceed. Please notify the patient when the order is available for scheduling. [facility] 05-21-2025 Instructions Jenny Winston MA - 05/21/2025 9:07 AM EDT Please select the following link to access the [facility] Your Guide to a Healthy . [email or web address] documented in this encounter [facility] 05-21-2025 History of Presen t illness Narrative Product Development offered: Patient declines. INITIAL OB ASSESSMENT HPI: Iris is a 29 year old White here to establish Obstetrical Care. Patient's last menstrual period was 01/22/2025. from OB Dating Form. was unplanned but accepted Complaints: No OB History Gravida2 Para1 Term1 Preterm0 AB0 Living1 SAB0 IAB0 Ectopic0 Multiple0 Live Births1 Previous history: Prior : yes x 1 History of 4th degree laceration: NA History of shoulder dystocia: No History of Hypertensive disorders including pre-eclampsia or gestational hypertension: Yes History of gestational diabetes: No Patient's Risk Screening for delivery: Have you had a prior juarez between 20w and 36w6d? No How many pregnancies have you had before? 1 Did you have a previous baby with a GBS Infection? No Please select all that apply for any prior : large MEDICAL/PSYCHOSOCIAL HISTORY: History of hemorrhage or bleeding concerns: Yes, received blood transfusion for hemoglobin of 5.5 Thyroid Disease: No History of chronic hypertension: No History of pre-existing diabetes: No No results found for: "ABORHD" BMI 25.92 kg/(m^2) Last Pap: last year History of abnormal pap: 8 years ago Prior treatment for cervical dysplasia: none. Last HPV: positive aroud 8 years History of STDs: HPV Partner History of STDs: None Did you have a partner with Herpes? No Tobacco use: No E-Cigarette/Vaping Use: No Caffeine use: Yes Drug use: No Alcohol use: No Multivitamin with Folic acid: Yes Would refuse blood transfusion if medically necessary: No Social Needs: How often does this describe you? I don't have enough money to pay my bills: Sometimes Within the past 12 months, have you worried that your food would run out before you had money to buy more? Never In the past 12 months, has lack of reliable transportation kept you from going to medical appointments or work, or from getting things needed for daily living? Never In the past 12 months, have you had any concerns about having a place to live, or about the condition or quality of your housing? Never Would you like more information on any of the following (please check all that apply)? Centering (group care classes) Social History: Do you have any history of depression, anxiety, PTSD, or other mood problems? No Do you have a history of abuse or trauma that may impact your experience? No Are you currently employed? No Depression/Anxiety Screening: denies symptoms of depression. OB Depression and Anxiety Screening- This Encounter Feeling down, depressed, or hopeless: Not at all Little interest or pleasure in doing things: Not at all Feeling nervous, anxious, or on edge Not at all Not being able to stop or control worrying Not at all Anxiety Pre-Screening Total (If >/= 3 additional questions will be reviewed) 0 Genetic Screening: Partner present: Yes Patient verbalized knowledge of partner family health history: Yes Do you or your partner have any personal or family history of defects not previously discussed: No Do you have history of a complicated by anomaly, genetic condition, or demise: No Preeclampsia Risk Screening: Screening for prevention of preeclampsia: High risk factors: None Moderate risk ractors: History of gHTN OB Risk Screening: Completed, no positive findings documented. Marital Status:Single Partner: Name: Karlos Age: 28 Occupation: self employed Gender: Male PAST MEDICAL HISTORY Diagnosis Date Anemia during last - 2023 PAST SURGICAL HISTORY Procedure Laterality Date DELIVERY ONLY 2023 PAST SURGICAL HISTORY OF wisdom teeth Current Outpatient Medications Medication Sig Dispense Refill vit 75/iron/folic/om3 (DAILY ORAL) Take by mouth. No current facility-administered medications for this visit. Allergies As of Date: 05/21/2025 Allergen Noted Reaction DIPHENHYDRAMINE 08/24/2023 Shortness of Breath HYDROGEN PEROXIDE 08/24/2023 Other: See Comments PENICILLINS 08/24/2023 Swelling Fully Assessed 05/21/2025 Does patient have penicillin allergy: Yes, plan for allergy testing. REVIEW OF SYSTEMS: GENERAL: Negative for: Fever or Chills HEENT: Negative for: Headache, Impaired Vision, Ringing in Ears, Nosebleeds NECK: Negative for: Swelling, Pain, Stiffness RESPIRATORY: Negative for: Cough, Shortness of breath, Wheezing GASTROINTESTINAL: Negative for: Heartburn, Constipation, Diarrhea, Blood in stool, Vomiting MUSCULOSKELETAL: Negative for: Muscle or joint pain, stiffness, Joint swelling NEUROLOGIC/PSYCHIATRIC: Negative for: Weakness, Paralysis, Numbness, Tingling, Tremor, Anxiety, Depression, Memory loss SKIN: Negative for: Rash, Itching GENITOURINARY: Negative for: vaginal itching, vaginal discharge, hematuria or dysuria SENSITIVE EXAM: The sensitive examination was discussed with the Patient or Patient's Authorized Vision Specialist. As applicable, any other physician, advance practice provider, medical student, or other health professional student that will be observing or involved in the sensitive examination for educational or training purposes was discussed with the Patient or Authorized Vision Specialist. The Patient or Authorized Vision Specialist has agreed to proceed with the sensitive examination. (Sensitive examination includes inspection and/or palpation of the breasts, pelvis, prostate and anorectal regions). PHYSICAL EXAM: BP 112/60 Ht 5' 4" (1.63m) Wt 151 lb (68.5kg) LMP 01/22/2025 BMI 25.91 kg/(m^2). GENERAL: pleasant in no apparent distress DERMATOLOGY: Normal, without lesions, non-icteric, and non-hirsute NECK: Supple, full range of motion, no adenopathy, and thyroid normal CHEST: Normal inspiratory effort BREAST: soft, non-tender, symmetric, no dominant mass, normal nipple-areolar complex, no lymphadenopathy, and no nipple discharge ABDOMEN: soft, non-tender, and no masses NEURO: alert and oriented x3,exam grossly non-focal PELVIS: External genitalia normal without lesions. Perineal body intact. No vaginal or cervical lesions. Cervix closed. Uterus 12+ week size. No adnexal masses or tenderness. Clinical Pelvimetry: Pelvimetry clinically assessed as adequate Limited OB ultrasound exam: not performed ASSESSMENT: 29 year old at 17w0d wks gestational age PLAN: 1) Patient oriented to practice. Patient given new OB orientation folder. Discussed nutrition, folic acid supplementation, dietary guidelines, exercise, smoking, alcohol, caffeine, and drug use. Discussed gestational weight gain guidelines. Discussed routine OB labs including STD/HIV. Discussed how to access Your guide to a health and the Cinema Operator. Discussed hemoglobin electrophoresis. Patient: Declines Patient has penicillin allergy, plan for allergy testing. Reviewed midwifery and licensed sales producer services that are available. 2) Screening: Hemoglobin A1C: ordered Baby Aspirin: The patient has been counseled about the potential benefits of low dose aspirin in and our recommendation that this be offered to all patients, regardless of whether they meet the high risk criteria specified above. Discussed 16+ weeks - will likely not have much clinical benefit to starting LDA at this point. Aneuploidy Screening: Discussed aneuploidy screening, nuchal translucency/first trimester early anatomy ultrasound and NIPT. The risks/benefits and limitations of NIPT/aneuploidy screening were reviewed including the potential for false negative and false positive results. The availability of genetic counseling was reviewed. Information on aneuploidy screening was provided. The patient declines screening Myriad Carrier Screening: Discussed myriad carrier screening. We discussed the availability of professional-society guided carrier screening and reviewed the conditions screened and limitations of screening. The availability of genetic counseling was reviewed. Information on carrier screening was provided. The patient Accepts 3) Patient offered option of Virtual Visits. Patient unsure. May consider in future. ACTIVE PROBLEM LIST Supervision of High Risk in Second Trimester ([facility]) - 05/21/2025 Comment: [] Dating US [x] First Trimester Labs [x] Pap smear - [x] Genetic Carrier screening [] Declines/previously completed [] NIPT screening [x] declines [] First Tri Anatomy US [] Declines [] ASA Prophylaxis (12-16 wk) [] Behavioral health screen [] OB Navigator referral [] N/A [] M-Power referral [] N/A [] Anatomic US [] SmartSet OB 24-28 week Profile [] Rough And Trueing Machine Operator, safe sleep, car seat [] Mode of Delivery - [] planned [] TOLAC planned [] CS scheduled [] Consent/ .whitol Infant feeding [] Breast [] Pump info/RX [] Formula [] Both [] Undecided [] med referral [] Behavioral health screen [] PP Contraception - [] Sterilization Consent if unwanted fertility [] preference & TeamBirth [] OB Navigator referral [] N/A [] Rhogam [] N/A [] Presentation - [] GBS (36+ wks) [] Delivery Consent [] SmartSet DENTAL INTERN Scheduled Delivery Plan [] H&P [] v Late Care (Hcc) - 05/21/2025 Comment: May 21, 2025 First presented at 17 weeks. Anatomy ultrasound ordered. Jaclyn Scott APRN.CNP Family History of Cleft Lip - 05/21/2025 Comment: May 21, 2025 2 siblings with cleft lip. Jaclyn Scott APRN.CNP History of Section - 05/21/2025 Comment: March 2024 due to arrest of dilation and cervical swelling Bladder blade was placed and a transverse uterine incision was made. was delivered from an OP presentation." - Op record available 04/08/24 Jaclyn Scott APRN.CNP Short Interval Between Pregnancies Affecting , Antepartum ([facility]) - 05/21/2025 Comment: May 21, 2025 Delivered via c section March 2024 Jaclyn Scott APRN.CNP Penicillin Allergy - 05/21/2025 Comment: May 21, 2025 Consider Pencil oscar allergy consult. Jaclyn Scott APRN.CNP History of Macrosomia in in Prior , Currently ([facility]) - 05/21/2025 Comment: May 21, 2025 9 lb 13 oz at 41w4d History of Blood Transfusion - 05/21/2025 Comment: May 21, 2025 Completed on 04/09 , hemoglobin was 5.5 Jaclyn Scott APRN.CNP History of Hypertension - 05/21/2025 Comment: May 21, 2025 Started on Labetalol . Baseline labs ordered. Jaclyn Scott APRN.GERIATRIC NURSE ASSISTANT Follow up in 2 weeks or sooner prn. Schedule anatomy ultrasound. Jaclyn Scott APRN.GERIATRIC NURSE ASSISTANT documented in this encounter [facility] 05-21-2025 Note HNO ID: [id number] Author: JACLYN SCOTT APRN.JESUS Service: ? Author Type: Nurse Practitioner Type: Progress Notes Filed: 05/21/2025 09:51 Note Text: Product Development offered: Patient declines. INITIAL OB ASSESSMENT HPI: Iris is a 29 year old White here to establish Obstetrical Care. Patient's last menstrual period was 01/22/2025. from OB Dating Form. was unplanned but accepted Complaints: No OB History Gravida2 Para1 Term1 Preterm0 AB0 Living1 SAB0 IAB0 Ectopic0 Multiple0 Live Births1 Previous history: Prior : yes x 1 History of 4th degree laceration: NA History of shoulder dystocia: No History of Hypertensive disorders including pre-eclampsia or gestational hypertension: Yes History of gestational diabetes: No Patient's Risk Screening for delivery: Have you had a prior juarez between 20w and 36w6d? No How many pregnancies have you had before? 1 Did you have a previous baby with a GBS Infection? No Please select all that apply for any prior : large MEDICAL/PSYCHOSOCIAL HISTORY: History of hemorrhage or bleeding concerns: Yes, received blood transfusion for hemoglobin of 5.5 Thyroid Disease: No History of chronic hypertension: No History of pre-existing diabetes: No No results found for: "ABORHD" BMI 25.92 kg/(m2) Last Pap: last year History of abnormal pap: 8 years ago Prior treatment for cervical dysplasia: none. Last HPV: positive aroud 8 years History of STDs: HPV Partner History of STDs: None Did you have a partner with Herpes? No Tobacco use: No E-Cigarette/Vaping Use: No Caffeine use: Yes Drug use: No Alcohol use: No Multivitamin with Folic acid: Yes Would refuse blood transfusion if medically necessary: No Social Needs: How often does this describe you? I don't have enough money to pay my bills: Sometimes Within the past 12 months, have you worried that your food would run out before you had money to buy more? Never In the past 12 months, has lack of reliable transportation kept you from going to medical appointments or work, or from getting things needed for daily living? Never In the past 12 months, have you had any concerns about having a place to live, or about the condition or quality of your housing? Never Would you like more information on any of the following (please check all that apply)? Centering (group care classes) Social History: Do you have any history of depression, anxiety, PTSD, or other mood problems? No Do you have a history of abuse or trauma that may impact your experience? No Are you currently employed? No Depression/Anxiety Screening: denies symptoms of depression. OB Depression and Anxiety Screening- This Encounter Feeling down, depressed, or hopeless: Not at all Little interest or pleasure in doing things: Not at all Feeling nervous, anxious, or on edge Not at all Not being able to stop or control worrying Not at all Anxiety Pre-Screening Total (If >/= 3 additional questions will be reviewed) 0 Genetic Screening: Partner present: Yes Patient verbalized knowledge of partner family health history: Yes Do you or your partner have any personal or family history of defects not previously discussed: No Do you have history of a complicated by anomaly, genetic condition, or demise: No Preeclampsia Risk Screening: Screening for prevention of preeclampsia: High risk factors: None Moderate risk ractors: History of gHTN OB Risk Screening: Completed, no positive findings documented. Marital Status:Single Partner: Name: Karlos Age: 28 Occupation: self employed Gender: Male PAST MEDICAL HISTORY Diagnosis Date Anemia during last - 2023 PAST SURGICAL HISTORY Procedure Laterality Date DELIVERY ONLY 2023 PAST SURGICAL HISTORY OF wisdom teeth Current Outpatient Medications Medication Sig Dispense Refill vit 75/iron/folic/om3 (DAILY ORAL) Take by mouth. No current facility-administered medications for this visit. Allergies As of Date: 05/21/2025 Allergen Noted Reaction DIPHENHYDRAMINE 08/24/2023 Shortness of Breath HYDROGEN PEROXIDE 08/24/2023 Other: See Comments PENICILLINS 08/24/2023 Swelling Fully Assessed 05/21/2025 Does patient have penicillin allergy: Yes, plan for allergy testing. REVIEW OF SYSTEMS: GENERAL: Negative for: Fever or Chills HEENT: Negative for: Headache, Impaired Vision, Ringing in Ears, Nosebleeds NECK: Negative for: Swelling, Pain, Stiffness RESPIRATORY: Negative for: Cough, Shortness of breath, Wheezing GASTROINTESTINAL: Negative for: Heartburn, Constipation, Diarrhea, Blood in stool, Vomiting MUSCULOSKELETAL: Negative for: Muscle or joint pain, stiffness, Joint swelling NEUROLOGIC/PSYCHIATRIC: Negative for: Weakness, Paralysis, Numbness, Tingling, T (more content not included)... [facility] 05-14-2025 Telephone encount er Note Phone call placed brief message to complete new Ob intake questions. Andrae De La Fuente LPN [facility] 05-14-2025 Miscellaneous Notes Formattin g of this note might be different from the original. Phone call placed brief message to complete new Ob intake questions. Andrae De La Fuente LPN documented in this encounter [facility] Evaluation note Diagnosis Supervision of high risk in second trimester (HCC)- Primary Unspecified high-risk 17 weeks gestation of (HCC) state, incidental History of section Other postprocedural status Screen for STD (sexually transmitted disease) Screening examination for venereal disease Screening for cervical cancer Screening for malignant neoplasm of the cervix Family history of cleft lip Family history of congenital anomalies Late care (HCC) Insufficient care Short interval between pregnancies affecting , antepartum ([facility]) Penicillin allergy Personal history of allergy to penicillin History of macrosomia in in prior , currently (HCC) with other poor obstetric history History of blood transfusion Other specified personal history presenting hazards to health History of hypertension History of polyhydramnios Personal history of other genital system and obstetric disorders documented [facility] this [facility] Diagnosis Supervision of high risk in second trimester (HCC)- Primary Unspecified high-risk documented in this encounter [facility] Summary Purpose Family History No Family History Records FoundNo Family History Records FoundNo Family History Records FoundNo Family History Records Found Advance Directives No Advanced Directives Records FoundNo Advanced Directives Records FoundNo Advanced Directives Records FoundNo Advanced Directives Records Found Additional Source Comments INFORMATION SOURCE (unrecogn ized section and content) DATE CREATED AUTHOR 03/14/2018 [facility] DATE CREATED AUTHOR AUTHOR'S ORGANIZ ATION 11/20/2019 [facility] DATE CREATED AUTHOR AUTHOR'S ORGANIZ ATION 04/23/2020 [facility] DATE CREATED AUTHOR AUTHOR'S ORGANIZ ATION 06/12/[address] [facility] Source Comments (unrecognize d section and content) In the event this informatio n is protected by the Federal Confidentiality of Alcohol and Drug Abuse Patient Records regulations: The Federal rules restrict any use of the information to criminally investigate or prosecute any alcohol or drug abuse patient.[facility] the event this information is protected by the Federal Confidentiality of Alcohol and Drug Abuse Patient Records regulations: The Federal rules restrict any use of the information to criminally investigate or prosecute any alcohol or drug abuse patient.[facility] the event this information is protected by the Federal Confidentiality of Alcohol and Drug Abuse Patient Records regulations: The Federal rules restrict any use of the information to criminally investigate or prosecute any alcohol or drug abuse patient.[facility] Reason for Visit (unrecogniz ed section and content) Reason Comments Orders NIPT/aneuploidy scre ening Reason Comments PRAF FOR RECORDS PERTAINING TO PATIENTS WHO ARE OR HAVE BEEN ENROLLED IN A CHEMICAL DEPENDENCY/SUBSTANCEABUSE PROGRAM, SOME INFORMATION MAY BE OMITTED. This clinical summary was aggregated from multiple sources. Caution should be exercised in using it in the provision of clinical care. This summary normalizes information from multiple sources, and as a consequence, information in this document may materially change the coding, format and clinical context of patient data. In addition, data may be omitted in some cases. CLINICAL DECISIONS SHOULD BE BASED ON THE PRIMARY CLINICAL RECORDS. [facility]. provides no warranty or guarantee of the accuracy or completeness of information in this document.
[2025-07-09 21:51] VITALS: BP 124/58; PULSE 89; RESP 16; TEMP 36.6; O2SAT 97
--- NOTE | 2025-07-09 22:08 | OB.TRI.HP_ITS ---
HPI - General General Date of Admission: 07/09/25 Date of Service: 07/09/25 HPI Narrative KEERTHI RAMOS, is a 29 F who presents with back pain. Started around 3pm and has not improved with Tylenol or heat. No LOF fluid no bleeding. Occasional contraction. Increased frequency with small volumes of urine. UA with blood and sediment. Suggestive of a kidney stone. Pt does admit to drinking more soda than water. UA sent for culture and patient encouraged to increase water intake Maternal Data Information Final RODNEY: 10/29/25 Gestational age: 24 PFSH PFSH Home Medications Medication Instructions Recorded Last Taken Type aspirin 81 mg tablet,delayed 81 mg PO DAILY 07/09/25 U nknown History release (Adult Aspirin Regimen) vitamins no.102-iron 90 cap PO 07/09/25 Unkno wn History mg-folate 1 mg-dha 200 mg capsule Allergy/AdvReac Type Severity Reaction Status Date / Time diphenhydramine Allergy Shortness Verified 07/09/25 22:00 of breath hydrogen peroxide Allergy Swelling Verified 07/09/25 22:00 penicillin G Allergy Angioedema Verified 07/09/25 22:00 History 2 Elective abortions Hx Para 1 Spontaneous abortions Hx # Term Pregnancies Ectopic pregnancies Hx # Pregnancies Multiple births # of living children NST FHR Rate Baby A Baseline: 140 Variability:: Moderate Accelerations:: 10 x 10 NST Reactive:: Appropriate for gestational age Uterine Activity:: irritable Assessment & Plan (1) Back pain affecting : (2) 24 weeks gestation of : PLAN: Plan Increase po water. Tylenol prn Culture pending
[2025-07-09 22:45] LABS: Color, Urine Yellow (Yellow); Glucose, Dipstick 50 mg/dl (Normal); Ketone-Dipstick Negative (Negative); Leukocyte Esterase-Dipstick 25 /ul (Negative); Nitrite-Dipstick Negative (Negative); Occult Blood-Urine 10 /ul (Negative); Protein-Dipstick 15 mg/dl (Negative); Specific Gravity, Urine 1.025 (1.002-1.030); Urine Bilirubin Dipstick Negative (Negative)
[2025-07-09 23:02] LABS: Squamous Epithelial Cells - UA 25-50 SEEN /hpf (5-10)
[2025-07-09 23:04] LABS: Calcium Oxalate Crystals Ur 1+ /hpf (<or=2+); Mucous, Urine 1+ /hpf (<or=2+); Red Blood Cells-Urine 0-5 SEEN /hpf (0-5); Transitional Epithelial - Ur 0-5 SEEN /hpf (0-5)
== END 2025-07-09 23:25 | disposition home or self-care (01) ==
LOC: WPOUT 21:35 → WP 21:36
PROVIDERS: Visit Provider Obstetrics & Gynecology
DX: O99.891 Other specified diseases and conditions complicating pregnancy (principal); M54.9 Dorsalgia, unspecified; R35.0 Frequency of micturition; Z3A.24 24 weeks gestation of pregnancy; Z79.82 Long term (current) use of aspirin
CPT/HCPCS: 59050; 81001; 87086; 99221; G0378